=== PATIENT | male | born 1945 | race Caucasian/White ===

== ENCOUNTER → 2017-03-27 | Outpatient (CLI) | payer OTHER ==
[2017-03-27 11:36] LABS: BASO % 0.5 %; BASO ABS # 0.03 K/uL (0-0.2); COMPLETE YES; EOS % 2.1 %; HEMATOCRIT 49.3 % (42-52); IG% 0.2 %; LYMPH % 45.6 %; LYMPH ABS # 2.55 K/uL (1.2-3.4); MEAN CELL VOLUME 93.9 fL (80-100); MEAN CORPUSCULAR HEMOGLOBIN 29.7 pg (25-34); MEAN CORPUSCULAR HGB CONC 31.6 g/dl (32-36); MEAN PLATELET VOLUME 10.3 fL (7.4-10.4); MONO % 8.2 %; NEUT % 43.4 %; PLATELET COUNT 174 K/uL (130-400); RED BLOOD COUNT 5.25 M/uL (4.7-6.1); WHITE BLOOD COUNT 5.59 K/uL (4.8-10.8)
[2017-03-27 11:45] LABS: ALT/SGPT 30 U/L (12-78); BLOOD UREA NITROGEN 14 mg/dl (7-18); BUN/CREATININE RATIO 7.2 (10-20); CARBON DIOXIDE 25 mmol/L (21-32); CHLORIDE 110 mmol/L (98-107); GLUCOSE 86 mg/dl (70-99); POTASSIUM 4.1 mmol/L (3.5-5.1); SODIUM 143 mmol/L (136-145)
[2017-03-27 11:48] LABS: ALB/GLOB RATIO 0.9 (0.9-2); ALKALINE PHOSPHATASE 126 U/L (45-117); AST/SGOT 26 U/L (15-37)
[2017-03-30 18:33] LABS: LSP % CELLS ANALYZED CD4 26 % (30-61); LSP ABSOLUTE CT CD4 637 cells/uL (490-1740); LSP LYMPHOCYTES ABSOLUTE 2481 cells/uL (850-3900)
== END | disposition home or self-care (01) ==
LOC: C.LAB1850 10:11
PROVIDERS: ATTEND Internal Medicine Infectious Disease
DX: B20 Human immunodeficiency virus [HIV] disease (principal)

== ENCOUNTER → 2017-06-18 | Outpatient (CLI) | payer OTHER | END | disposition home or self-care (01) | LOC: C.LAB1850 09:55 | PROVIDERS: ATTEND Urology | DX: Z12.5 Encounter for screening for malignant neoplasm of prostate (principal) ==

== ENCOUNTER → 2017-10-02 | Outpatient (CLI) | payer OTHER ==
[2017-10-02 10:40] LABS: HEMATOCRIT 46.8 % (42-52); MEAN CELL VOLUME 96.1 fL (80-100); MEAN CORPUSCULAR HGB CONC 33.3 g/dl (32-36); MEAN PLATELET VOLUME 10.4 fL (7.4-10.4); PLATELET COUNT 202 K/uL (130-400); RED BLOOD COUNT 4.87 M/uL (4.7-6.1); WHITE BLOOD COUNT 4.84 K/uL (4.8-10.8)
[2017-10-02 11:14] LABS: ALT/SGPT 34 U/L (12-78); AST/SGOT 30 U/L (15-37); BLOOD UREA NITROGEN 21 mg/dl (7-18); BUN/CREATININE RATIO 11.1 (10-20); CALCIUM 9.1 mg/dl (8.5-10.1); CARBON DIOXIDE 25 mmol/L (21-32); CHLORIDE 110 mmol/L (98-107); CREATININE 1.88 mg/dl (0.60-1.40); GLUCOSE 84 mg/dl (70-99); POTASSIUM 4.3 mmol/L (3.5-5.1); SODIUM 139 mmol/L (136-145)
[2017-10-02 11:17] LABS: ALB/GLOB RATIO 0.8 (0.9-2); ALKALINE PHOSPHATASE 124 U/L (45-117)
[2017-10-02 11:58] LABS: BASO ABS # 0.04 K/uL (0-0.2); BASOPHIL % 0.9 % (0-2); COMPLETE YES; EOSINOPHIL % 2.7 %; LYMPH ABS # 1.19 K/uL (1.2-3.4); LYMPHOCYTE % 24.5 %; VARIANT LYM ABS # 1.23 K/uL; VARIANT LYMPHOCYTE % 25.5 %
== END | disposition home or self-care (01) ==
LOC: C.LAB1850 09:59
PROVIDERS: ATTEND Internal Medicine Infectious Disease
DX: B20 Human immunodeficiency virus [HIV] disease (principal)

== ENCOUNTER 2022-10-14 16:41 | Observation (INO) ==
[2022-10-15] MEDS ORDERED: ACETAMINOPHEN 1,000 MG/100 ML VIAL IV STA (00:08)
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
[2022-10-15 01:01] LABS: Basophils # (auto) 0.04 K/uL (0-0.2); Basophils % (auto) 0.7 %; Eosinophils # (auto) 0.48 K/uL (0-0.50); Eosinophils % (auto) 7.9 %; Hematocrit (blood only) 39.4 % (40.1-51.0); Hemoglobin 12.4 g/dl (14.0-18.0); Immature Granulocytes # (auto) 0.04 K/uL (0.00-0.02); Immature Granulocytes % (auto) 0.7 %; Lymphocytes # (auto) 2.42 K/uL (1.2-3.4); Lymphocytes % (auto) 39.7 %; Mean Corpuscular Hemoglobin 30.5 pg (25.0-34.0); Mean Corpuscular Hgb Conc 31.5 g/dL (32.0-36.0); Mean Platelet Volume 9.6 fL (9.4-12.4); Monocytes # (auto) 0.45 K/uL (0.24-0.82); Monocytes % (auto) 7.4 %; Neutrophils # (auto) 2.67 K/uL (1.4-6.5); Neutrophils % (auto) 43.6 %; Platelet Count 285 K/uL (130-400); RDW Coefficient of Variation 13.8 % (11.5-14.5); Red Blood Count 4.06 M/uL (4.63-6.08)
[2022-10-15 01:23] LABS: Partial Thromboplastin Time 26.3 Seconds (21.0-31.0); Prothrombin Time 10.5 Seconds (9.0-12.0)
[2022-10-15 01:25] LABS: Albumin Globulin Ratio 0.9 (0.9-2); Albumin Level 3.6 gm/dl (3.4-5.0); Bilirubin,Total 0.3 mg/dl (0.2-1.0); Calcium 8.3 mg/dl (8.5-10.1); Creatinine Clr Calc Pharmacy 43.2 ml/min; Est GFR (African American) 49.7 ml/min; Est GFR (Non-African American) 42.8 ml/min; Globulin 3.8 gm/dl (2.5-4.0); Potassium 4.1 mmol/L (3.5-5.1); Total Protein 7.4 gm/dl (6.0-8.3)
[2022-10-15] MEDS ORDERED: Heparin IV Adult Wt-Based Standard WITH Bolus Protocol IV STA (02:58)
[2022-10-15] MEDS ORDERED: HEPARIN SOD (PORCINE) 1000 UNIT/ML IV ONE (03:14)
[2022-10-15] MEDS: HEPARIN SODIUM/DEXTROSE 25,000 UNITS/500 ML BAG IV SCH ×2 (03:16→23:02)
[2022-10-15 03:28] LABS: Influenza A virus by PCR Negative (Neg); Influenza B virus by PCR Negative (Neg); RSV by PCR Negative (Neg)
[2022-10-15 03:53] LABS: SARS CoV2 RNA(COVID-19) Ceph POSITIVE (Negative)
[2022-10-15] MEDS ORDERED: PANTOprazole 40 MG TAB PO PRN (05:13)
[2022-10-15] MEDS ORDERED: POLYETHYLENE (MIRALAX) 17 GM PACK PO PRN (05:13)
[2022-10-15] MEDS: LEVOTHYROXINE SODIUM 100 MCG TABLET PO SCH (06:31)
--- NOTE | 2022-10-15 06:59 | Ultrasound Report ---
ULTRASOUND LEFT LOWER EXTREMITY VENOUS CLINICAL HISTORY: Left leg pain and swelling. COMPARISON STUDY: No priors TECHNIQUE: Real-time, grayscale, and color Doppler sonography of the deep veins of the left lower ext remity was performed from the inguinal crease to the calf. Compression and augmentation were utilized . FINDINGS: There is extensive age indeterminant and nonocclusive deep venous thrombus seen throughout the left lower extremity. This is seen within the common femoral vein, within 1 of 2 paired superfici al femoral veins, within both paired popliteal veins, and within the calf in the posterior tibial, pe roneal, and anterior tibial veins. The greater saphenous vein and the profunda femoris vein at the ju nction with the common femoral vein are clear. Soft tissue edema seen within the calf. IMPRESSION: Extensive age-indeterminate nonocclusive deep venous thrombosis from the level extremity as above. ACT 112: Negative or not required by law. Electronically signed by: Bryce Blake M.D. 10/15/2022 6:57 AM
[2022-10-15 07:13] LABS: Hematocrit (blood only) 39.8 % (40.1-51.0); Hemoglobin 12.3 g/dl (14.0-18.0); Mean Corpuscular Hemoglobin 29.9 pg (25.0-34.0); Mean Corpuscular Hgb Conc 30.9 g/dL (32.0-36.0); Mean Corpuscular Volume 96.8 fL (80.0-100.0); Mean Platelet Volume 9.6 fL (9.4-12.4); Platelet Count 286 K/uL (130-400); RDW Coefficient of Variation 13.7 % (11.5-14.5); RDW Standard Deviation 48.6 fL (36.4-46.3); Red Blood Count 4.11 M/uL (4.63-6.08); White Blood Count 6.33 K/ul (4.8-10.8)
--- NOTE | 2022-10-15 07:31 | History and Physical Report ---
DATE OF ADMISSION: 10/15/2022 CHIEF COMPLAINT: Left lower extremity edema and pain. HISTORY OF PRESENT ILLNESS: This is a 77-year-old male with past medical history significant for hypothyroidism, hyperlipidemia, COPD, and history of blood clots, he says his first blood clot was in 2002 and last blood clot was about 1 year ago, and on his last blood clot, he was on Xarelto for 6 months. As per EPIC, he also has history of left lower extremity DVT( seems in 2019), status post IVC filter; bilateral carotid artery stenosis, hypertension, history of CVA, history of PVCs, reflux esophagitis, chronic kidney disease, stage III; HIV positive, history of right common carotid artery stent placement, and chronic hepatitis C with cirrhosis, treated in 2019 as per ID notes, diagnosed with HIV in 1989, follows with ID, presents with left lower extremity swelling. The patient says the swelling started about 5 days ago and has pain. He went to [facility] and he says he was having DVT, but he was not treated, so came here. Resting comfortably and hemodynamically stable. Except for pain in the leg and swelling, he has no other complaints. Denies any chest pain. No shortness of breath. No cough. No fevers. He said he had flu-like symptoms since last 2 weeks ago and that is getting better. Except for lingering cough, he says the symptoms resolved. Denies any headache. No blurred visions. No earache. No runny nose. No sore throat. Appetite is okay. No nausea. No abdominal pain. Normal bowel and bladder movements. Denies any blood in stools or black stools. Denies any hematuria. ALLERGIES: AMOXICILLIN AND PENICILLIN. PAST MEDICAL HISTORY: As mentioned above. PAST SURGICAL HISTORY: Colonoscopies, EGDs, IVC filter placement, abdominal hernia repair, and inguinal hernia repair. MEDICATIONS: The patient is on aspirin 81 mg p.o. at bedtime, Biktarvy 1 tablet daily, doxepin 100 mg p.o. at bedtime, Repatha 140 mg subcutaneous 2 times a week, levothyroxine 100 mcg p.o. a.m., and omeprazole 20 mg p.o. daily p.r.n. FAMILY HISTORY: Significant for brother had pancreatic cancer, mother had cervical cancer, sister has lung cancer, and father has hypertension and stroke. SOCIAL HISTORY: Single. Quit smoking in 2008, smoked 1 pack a day for 20 years. Alcohol, quit 5 years ago. History of IV drug use, stopped and currently not doing. REVIEW OF SYSTEMS: As per HPI. Rest of review of systems is negative. PHYSICAL EXAMINATION: GENERAL: The patient is moderately built, not in acute distress. VITAL SIGNS: Temperature 36.7, pulse 66, respiratory rate 18, blood pressure 158/109, and oxygen saturation 97% on room air. HEENT: Pupils equal, round, and reactive to light. Oral mucosa moist. NECK: No JVD. No neck masses. CARDIOVASCULAR: S1 and S2 heard. Regular rate and rhythm. No murmur. No gallop. RESPIRATORY SYSTEM: Normal AP diameter. No accessory muscle use. No wheezing. No crackles. ABDOMEN: Soft. Bowel sounds present. Nontender. No distention. CENTRAL NERVOUS SYSTEM: Cranial nerves II-XII grossly intact, nonfocal. EXTREMITIES: Left lower extremity is swollen and somewhat warm and tender to palpation. LABORATORY DATA: WBC 6.1, hemoglobin 12.4, hematocrit 39.4, and platelets 285. PT 10.5, INR 1, and APTT 26.3. Sodium 138, potassium 4.1, chloride 106, bicarbonate 25, BUN 14, creatinine 1.5, serum glucose 107, calcium 8.3, and magnesium 2. Total bilirubin 0.3, AST 21, ALT 20, and alkaline phosphatase 103. Troponin I high sensitivity 7.9. SARS-CoV-2 PCR positive. Influenza A and B PCR negative. RSV PCR negative. IMAGING DATA: Venous Doppler preliminary report shows chronic deep vein thrombosis throughout the left lower extremity including left common femoral, distal femoral, and proximal popliteal veins. There is edema noted in the left calf. Chest x-ray: No acute findings. EKG: Sinus rhythm with frequent PVCs at rate of 89. SARS-CoV-2 PCR came back positive. Influenza A and B PCR negative. RSV PCR negative. ASSESSMENT AND PLAN: This is a 77-year-old male, who presents with left lower extremity swelling and was found to have deep vein thrombosis. 1. Left lower extremity deep venous thrombosis, which is chronic appearing on the preliminary report will follow final report. The patient has a history of blood clots and the patient is status post IVC filter. His last blood clot was about 1 year ago as per the patient and was treated with Xarelto for 6 months. In the EPIC, it looks like his left lower extremity deep vein thrombosis was diagnosed in 2020. We will continue with IV heparin. Will discuss with housing case manager for further anticoagulation and duration anticoagulation. He may need long-term anticoagulation because of history of recurrent clots .Pain control. 2. COVID positive. The patient has flu-like symptoms for the last 2 weeks. Except for lingering cough, he is getting better and is saturating fine on room air. Chest x-ray looks okay. We will do COVID precautions. 3. Chronic kidney disease, stage III with creatinine of 1.5, seems to be stable. 4. History of hypothyroidism, on Synthroid. 5. History of human immunodeficiency virus, follows with ID, on Biktarvy. 6. Hyperlipidemia, on Repatha. 7. History of cerebrovascular accident, on Repatha and aspirin. 8. History of hepatitis C and liver cirrhosis, status post treatment in 2020 as per ID notes. 9. Deep venous thrombosis prophylaxis, on IV heparin. DISPOSITION: Closely observe in medical floor. PT and OT prior to discharge. Social service to help with discharge planning. Level 1 full code. Job ID: [id number] MTDD
--- NOTE | 2022-10-15 07:44 | XRay Report ---
XR chest 1V portable CLINICAL HISTORY: cough, HIV TECHNIQUE: Single frontal radiograph of the chest was obtained. Comparison: Comparison is made to chest radiograph 10/31/2019 FINDINGS: Exam is limited by underpenetration. The cardiomediastinal silhouette is normal. Reticular interstiti al opacities are seen. Apparent airspace opacity in the left lower lung likely reflects overlying sof t tissue. No evidence of pleural effusion or pneumothorax. IMPRESSION: No acute abnormalities and in particular no evidence of pneumonia. ACT 112: Negative or not required by law. Electronically signed by: Heber Galvan M.D. 10/15/2022 7:43 AM
[2022-10-15 07:45] LABS: BUN Creatinine Ratio 9.3 (10-20); Calcium 8.5 mg/dl (8.5-10.1); Creatinine Clr Calc Pharmacy 44.6 ml/min; Est GFR (African American) 51.7 ml/min; Est GFR (Non-African American) 44.6 ml/min; Potassium 4.2 mmol/L (3.5-5.1)
[2022-10-15 08:22] LABS: Basophils # (auto) 0.05 K/uL (0-0.2); Basophils % (auto) 0.8 %; Eosinophils # (auto) 0.46 K/uL (0-0.50); Eosinophils % (auto) 7.3 %; Immature Granulocytes # (auto) 0.03 K/uL (0.00-0.02); Immature Granulocytes % (auto) 0.5 %; Lymphocytes # (auto) 3.18 K/uL (1.2-3.4); Lymphocytes % (auto) 50.2 %; Monocytes # (auto) 0.46 K/uL (0.24-0.82); Monocytes % (auto) 7.3 %; Neutrophils # (auto) 2.15 K/uL (1.4-6.5); Neutrophils % (auto) 33.9 %
--- NOTE | 2022-10-15 09:42 | Electrocardiogram Report ---
Test Reason : Blood Pressure : / mmHG Vent. Rate : 089 BPM Atrial Rate : 089 BPM P-R Int : 122 ms QRS Dur : 082 ms QT Int : 358 ms P-R-T Axes : 050 052 038 degrees QTc Int : 435 ms Poor data quality, interpretation may be adversely affected Sinus rhythm with frequent Premature ventricular complexes Otherwise normal ECG When compared with ECG of 24-DEC-2020 12:12, Premature ventricular complexes are now Present Right bundle branch block is no longer Present Confirmed by Maximo Crisostomo ([id number]) on 10/15/2022 9:41:40 AM Referred By: REFERRED SELF Confirmed By:Librado Crisostomo
[2022-10-15 10:12] LABS: Partial Thromboplastin Ratio 2.2
[2022-10-15 10:18] LABS: Partial Thromboplastin Time 59.2 Seconds (21.0-31.0)
[2022-10-15] MEDS ORDERED: SODIUM CHLORIDE 0.9% 500 ML IV ONE (15:57)
--- NOTE | 2022-10-15 18:10 | Hospitalist Progress Note ---
Date of Service October 15, 2022 Assessment & Plan (1) Left leg DVT: Plan: Patient is a 77 yr male who presents with left lower extremity swelling and was found to have deep vein thrombosis. 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 Previously on Xarelto Continue IV heparin for now Discussed with oncology Dr. Nicola Thomas: Recommends to continue anticoagulation Plan to transition to Xarelto as able as per patient's preference COVID 19 Infection Has flulike symptoms for 2 weeks CXR:No acute abnormalities and in particular no evidence of pneumonia. Saturating well on room air Continue supportive care CKD III Baseline creatinine Monitor renal function Avoid nephrotoxic agents as able Hypothyroidism Continue levothyroxine H/O HIV Follows with ID on Biktarvy. Hyperlipidemia on Repatha H/O CVA Continue Repatha and aspirin. H/O Hepatitis C and liver cirrhosis S/P treatment in 2019 DVT Px: IV Heparin Code Status Full Code Admission and Anticipated Discharge Date Admission Date: October 15, 2022 Subjective Patient is seen and examined at bedside States having left leg edema Cough improving Denies any shortness of breath, dizziness, nausea, abdominal pain On IV heparin No bleeding issues Review of Systems Review of Systems: All systems reviewed & are unremarkable except as noted in Subjective Physical Exam Physical Exam: Physical Exam: Vitals signs as noted above General Appearance:Moderately built and nourished, no apparent distress Head: normocephalic, Atraumatic Eyes: normal inspection, EOMI Neck: supple, Trachea midline Respiratory/Chest: Decreased breath sounds, CTA, No accessory muscle use Cardiovascular: S1, S2, No murmur Abdomen/GI:Soft, Non tender, Bowel sounds present Extremities/Musculoskeletal:normal inspection, Left LE edema Neurologic/Psych:AAOX3, grossly no focal neurological deficits Skin: normal color, warm Results & Data Results & Data ([facility]) Vital Signs (Past 12 Hours) Vital Signs Temp Pulse Resp BP Pulse Ox O2 Del Method 10/15/22 15:20 36.6 C 75 18 178/82 H 95 Room Air 10/15/22 14:52 Room Air Laboratory Results Short CBC 10/15/22 10/15/22 Range/Units 00:51 06:45 WBC 6.10 6.33 (4.8-10.8) K/ul Hgb 12.4 L 12.3 L (14.0-18.0) g/dl Hct 39.4 L 39.8 L (40.1-51.0) % Plt Count 285 286 (130-400) K/uL BMP 10/15/22 10/15/22 00:51 06:45 Sodium 138 139 Potassium 4.1 4.2 Chloride 106 108 H Carbon Dioxide 25 26 BUN 14 14 Creatinine 1.55 H 1.50 H Glucose 107 H 138 H Calcium 8.3 L 8.5 Liver Function 10/15/22 Range/Units 00:51 Total Bilirubin 0.3 (0.2-1.0) mg/dl AST 21 (13-39) U/L ALT 20 (7-52) U/L Alkaline Phosphatase 103 (34-104) U/L Albumin 3.6 (3.4-5.0) gm/dl (1) Left leg DVT Affected thrombotic vein of extremity: femoral Chronicity: unspecified Qualified Code(s): I82.412 - Acute embolism and thrombosis of left femoral vein
[2022-10-15] MEDS: oxyCODONE HCL IR 5 MG TAB (IMMEDIATE RELEASE) PO PRN (20:08)
[2022-10-15] MEDS: ACETAMINOPHEN 325 MG TAB PO PRN (20:09)
[2022-10-15] MEDS ORDERED: DOXEPIN HCL 50 MG CAPSULE PO SCH (21:00)
[2022-10-15] MEDS ORDERED: ASPIRIN 81 MG ECTAB PO SCH (21:00)
[2022-10-15 21:46] LABS: Partial Thromboplastin Ratio > 5.1
[2022-10-15 22:39] LABS: Partial Thromboplastin Time > 139.0 Seconds (21.0-31.0)
[2022-10-16 02:04] LABS: Hematocrit (blood only) 35.8 % (40.1-51.0); Hemoglobin 11.4 g/dl (14.0-18.0); Mean Corpuscular Hemoglobin 30.2 pg (25.0-34.0); Mean Corpuscular Hgb Conc 31.8 g/dL (32.0-36.0); Mean Platelet Volume 9.7 fL (9.4-12.4); Platelet Count 283 K/uL (130-400); RDW Coefficient of Variation 13.8 % (11.5-14.5); RDW Standard Deviation 47.4 fL (36.4-46.3); Red Blood Count 3.77 M/uL (4.63-6.08); White Blood Count 6.39 K/ul (4.8-10.8)
[2022-10-16 02:28] LABS: Partial Thromboplastin Time 28.1 Seconds (21.0-31.0)
[2022-10-16 02:52] LABS: BUN Creatinine Ratio 10.3 (10-20); Calcium 8.1 mg/dl (8.5-10.1); Creatinine Clr Calc Pharmacy 43.2 ml/min; Est GFR (African American) 49.7 ml/min; Est GFR (Non-African American) 42.8 ml/min; Potassium 4.3 mmol/L (3.5-5.1)
[2022-10-16] MEDS: LEVOTHYROXINE SODIUM 100 MCG TABLET PO SCH (06:00)
[2022-10-16] MEDS ORDERED: RIVAROXABAN 15 MG TAB PO SCH (09:00)
[2022-10-16] MEDS: oxyCODONE HCL IR 5 MG TAB (IMMEDIATE RELEASE) PO PRN (09:00)
[2022-10-16] MEDS: ACETAMINOPHEN 325 MG TAB PO PRN (09:00)
--- NOTE | 2022-10-16 12:33 | Hospitalist Progress Note ---
Date of Service October 16, 2022 Assessment & Plan (1) Left leg DVT: Plan: Patient is a 77 yr male who presents with left lower extremity swelling and was found to have deep vein thrombosis. 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 Previously on Xarelto Discussed with oncology Dr. Nicola Thomas: Recommends to continue anticoagulation IV Heparin transitioned to Xarelto COVID 19 Infection Has flulike symptoms for 2 weeks CXR:No acute abnormalities and in particular no evidence of pneumonia. Saturating well on room air Continue supportive care CKD III Baseline creatinine Monitor renal function Avoid nephrotoxic agents as able Hypothyroidism Continue levothyroxine H/O HIV Follows with ID on Biktarvy. Hyperlipidemia on Repatha H/O CVA Continue Repatha and aspirin. H/O Hepatitis C and liver cirrhosis S/P treatment in 2019 DVT Px: Xarelto Code Status Full Code Disposition Home Admission and Anticipated Discharge Date Admission Date: October 15, 2022 Subjective Patient is seen and examined at bedside States having leg discomfort and swelling Has dry cough No other complaints Denies any shortness of breath, dizziness, nausea, abdominal pain Denies any bleeding issues Review of Systems Review of Systems: All systems reviewed & are unremarkable except as noted in Subjective Physical Exam Physical Exam: Physical Exam: Vitals signs as noted above General Appearance:Moderately built and nourished, no apparent distress Head: normocephalic, Atraumatic Eyes: normal inspection, EOMI Neck: supple, Trachea midline Respiratory/Chest: Decreased breath sounds, CTA, No accessory muscle use Cardiovascular: S1, S2, No murmur Abdomen/GI:Soft, Non tender, Bowel sounds present Extremities/Musculoskeletal:normal inspection, Left LE edema Neurologic/Psych:AAOX3, grossly no focal neurological deficits Skin: normal color, warm Results & Data Results & Data ([facility]) Vital Signs (Past 12 Hours) Vital Signs Temp Pulse Resp BP Pulse Ox O2 Del Method 10/16/22 09:00 Room Air 10/16/22 05:56 36.5 C 71 16 162/68 H 93 Room Air Laboratory Results Short CBC 10/16/22 Range/Units 01:41 WBC 6.39 (4.8-10.8) K/ul Hgb 11.4 L (14.0-18.0) g/dl Hct 35.8 L (40.1-51.0) % Plt Count 283 (130-400) K/uL [facility] 10/16/22 01:41 Sodium 137 Potassium 4.3 Chloride 109 H Carbon Dioxide 23 BUN 16 Creatinine 1.55 H Glucose 104 H Calcium 8.1 L (1) Left leg DVT Affected thrombotic vein of extremity: femoral Chronicity: unspecified Qualified Code(s): I82.412 - Acute embolism and thrombosis of left femoral vein
--- NOTE | 2022-10-16 12:50 | Discharge Summary ---
Date of Service October 16, 2022 Admission HPI Per Admitting Provider CHIEF COMPLAINT: Left lower extremity edema and pain. HISTORY OF PRESENT ILLNESS: This is a 77-year-old male with past medical history significant for hypothyroidism, hyperlipidemia, COPD, and history of blood clots, he says his first blood clot was in 2002 and last blood clot was about 1 year ago, and on his last blood clot, he was on Xarelto for 6 months. As per EPIC, he also has history of left lower extremity DVT( seems in 2019), status post IVC filter; bilateral carotid artery stenosis, hypertension, history of CVA, history of PVCs, reflux esophagitis, chronic kidney disease, stage III; HIV positive, history of right common carotid artery stent placement, and chronic hepatitis C with cirrhosis, treated in 2019 as per ID notes, diagnosed with HIV in 1989, follows with ID, presents with left lower extremity swelling. The patient says the swelling started about 5 days ago and has pain. He went to [facility] and he says he was having DVT, but he was not treated, so came here. Resting comfortably and hemodynamically stable. Except for pain in the leg and swelling, he has no other complaints. Denies any chest pain. No shortness of breath. No cough. No fevers. He said he had flu-like symptoms since last 2 weeks ago and that is getting better. Except for lingering cough, he says the symptoms resolved. Denies any headache. No blurred visions. No earache. No runny nose. No sore throat. Appetite is okay. No nausea. No abdominal pain. Normal bowel and bladder movements. Denies any blood in stools or black stools. Denies any hematuria. Admission Exam Per Admitting Provider PHYSICAL EXAMINATION: GENERAL: The patient is moderately built, not in acute distress. VITAL SIGNS: Temperature 36.7, pulse 66, respiratory rate 18, blood pressure 158/109, and oxygen saturation 97% on room air. HEENT: Pupils equal, round, and reactive to light. Oral mucosa moist. NECK: No JVD. No neck masses. CARDIOVASCULAR: S1 and S2 heard. Regular rate and rhythm. No murmur. No gallop. RESPIRATORY SYSTEM: Normal AP diameter. No accessory muscle use. No wheezing. No crackles. ABDOMEN: Soft. Bowel sounds present. Nontender. No distention. CENTRAL NERVOUS SYSTEM: Cranial nerves II-XII grossly intact, nonfocal. EXTREMITIES: Left lower extremity is swollen and somewhat warm and tender to palpation. Principal Diagnosis Left lower extremity deep vein thrombosis COVID-19 infection Discharge Data Allergies Allergy/AdvReac Type Severity Reaction Status Date / Time amoxicillin AdvReac Severe severe Verified 10/15/22 00:14 diarrhea penicillin G AdvReac Severe severe Verified 10/15/22 00:14 diarrhea Consultations 10/15/22 02:58 ED Decision to Admit Stat Procedures Performed Laboratory Results WBC 6.39 K/ul (4.8-10.8) 10/16/22 01:41 RBC 3.77 M/uL (4.63-6.08) L 10/16/22 01:41 Hgb 11.4 g/dl (14.0-18.0) L 10/16/22 01:41 Hct 35.8 % (40.1-51.0) L 10/16/22 01:41 MCV 95.0 fL (80.0-100.0) 10/16/22 01:41 MCH 30.2 pg (25.0-34.0) 10/16/22 01:41 MCHC 31.8 g/dL (32.0-36.0) L 10/16/22 01:41 RDW Std Deviation 47.4 fL (36.4-46.3) H 10/16/22 01:41 RDW Coeff of Ghazala 13.8 % (11.5-14.5) 10/16/22 01:41 Plt Count 283 K/uL (130-400) 10/16/22 01:41 MPV 9.7 fL (9.4-12.4) 10/16/22 01:41 Immature Gran % (Auto) 0.5 % 10/15/22 06:45 Neut % (Auto) 33.9 % 10/15/22 06:45 Lymph % (Auto) 50.2 % 10/15/22 06:45 [place] % (Auto) 7.3 % 10/15/22 06:45 Eos % (Auto) 7.3 % 10/15/22 06:45 Baso % (Auto) 0.8 % 10/15/22 06:45 Neut # (Auto) 2.15 K/uL (1.4-6.5) 10/15/22 06:45 Lymph # (Auto) 3.18 K/uL (1.2-3.4) 10/15/22 06:45 [place] # (Auto) 0.46 K/uL (0.24-0.82) 10/15/22 06:45 Eos # (Auto) 0.46 K/uL (0-0.50) 10/15/22 06:45 Baso # (Auto) 0.05 K/uL (0-0.2) 10/15/22 06:45 Immature Gran # (Auto) 0.03 K/uL (0.00-0.02) H 10/15/22 06:45 PT 10.5 Seconds (9.0-12.0) 10/15/22 00:51 INR 1.0 (0.9-1.1) 10/15/22 00:51 APTT 28.1 Seconds (21.0-31.0) 10/16/22 01:41 PTT Ratio 1.0 10/16/22 01:41 Sodium 137 mmol/L (136-145) 10/16/22 01:41 Potassium 4.3 mmol/L (3.5-5.1) 10/16/22 01:41 Chloride 109 mmol/L (98-107) H 10/16/22 01:41 Carbon Dioxide 23 mmol/L (21-32) 10/16/22 01:41 Anion Gap 5 (3-11) 10/16/22 01:41 BUN 16 mg/dl (6-23) 10/16/22 01:41 Creatinine 1.55 mg/dl (0.6-1.4) H 10/16/22 01:41 Est Cr Clr Drug Dosing 43.2 ml/min 10/16/22 01:41 Est GFR ( Amer) 49.7 ml/min 10/16/22 01:41 Est GFR (Non-Af Amer) 42.8 ml/min 10/16/22 01:41 BUN/Creatinine Ratio 10.3 (10-20) 10/16/22 01:41 Glucose 104 mg/dl (70-99(Fasting)) H 10/16/22 01:41 Calcium 8.1 mg/dl (8.5-10.1) L 10/16/22 01:41 Magnesium 2.0 mg/dl (1.7-2.4) 10/15/22 06:45 Total Bilirubin 0.3 mg/dl (0.2-1.0) 10/15/22 00:51 AST 21 U/L (13-39) 10/15/22 00:51 ALT 20 U/L (7-52) 10/15/22 00:51 Alkaline Phosphatase 103 U/L (34-104) 10/15/22 00:51 Troponin I High Sens 7.9 pg/ml (0-20) 10/15/22 00:51 Total Protein 7.4 gm/dl (6.0-8.3) 10/15/22 00:51 Albumin 3.6 gm/dl (3.4-5.0) 10/15/22 00:51 Globulin 3.8 gm/dl (2.5-4.0) 10/15/22 00:51 Albumin/Globulin Ratio 0.9 (0.9-2) 10/15/22 00:51 SARS-CoV-2 (PCR) POSITIVE (Negative) A* 10/15/22 02:41 Influenza Type A (PCR) Negative (Neg) 10/15/22 02:41 Influenza Type B (PCR) Negative (Neg) 10/15/22 02:41 RSV (RT-PCR) Negative (Neg) 10/15/22 02:41 Impressions Chest X-Ray 10/15/22 00:08 XR chest 1V portable CLINICAL HISTORY: cough, HIV TECHNIQUE: Single frontal radiograph of the chest was obtained. Comparison: Comparison is made to chest radiograph 10/31/2019 FINDINGS: Exam is limited by underpenetration. The cardiomediastinal silhouette is normal. Reticular interstitial opacities are seen. Apparent airspace opacity in the left lower lung likely reflects overlying soft tissue. No evidence of pleural effusion or pneumothorax. IMPRESSION: No acute abnormalities and in particular no evidence of pneumonia. ACT 112: Negative or not required by law. Electronically signed by: Heber Galvan M.D. 10/15/2022 7:43 AM Venous Doppler Study 10/15/22 00:08 ULTRASOUND LEFT LOWER EXTREMITY VENOUS CLINICAL HISTORY: Left leg pain and swelling. COMPARISON STUDY: No priors TECHNIQUE: Real-time, grayscale, and color Doppler sonography of the deep veins of the left lower extremity was performed from the inguinal crease to the calf. Compression and augmentation were utilized. FINDINGS: There is extensive age indeterminant and nonocclusive deep venous thrombus seen throughout the left lower extremity. This is seen within the common femoral vein, within 1 of 2 paired superficial femoral veins, within both paired popliteal veins, and within the calf in the posterior tibial, peroneal, and anterior tibial veins. The greater saphenous vein and the profunda femoris vein at the junction with the common femoral vein are clear. Soft tissue edema seen within the calf. IMPRESSION: Extensive age-indeterminate nonocclusive deep venous thrombosis from the level extremity as above. ACT 112: Negative or not required by law. Electronically signed by: Bryce Blake M.D. 10/15/2022 6:57 AM Ordered Studies 10/15/22 00:08 US venous doppler LE Urgent Hospital Course (1) Left leg DVT: Patient is a 77 yr male who presents with left lower extremity swelling and was found to have deep vein thrombosis. 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 Previously on Xarelto Discussed with oncology Dr. Nicola Thomas: Recommends to continue anticoagulation IV Heparin transitioned to Xarelto COVID 19 Infection Has flulike symptoms for 2 weeks CXR:No acute abnormalities and in particular no evidence of pneumonia. Saturating well on room air Continue supportive care CKD III Baseline creatinine Monitor renal function Avoid nephrotoxic agents as able Hypothyroidism Continue levothyroxine H/O HIV Follows with ID on Biktarvy. Hyperlipidemia on Repatha H/O CVA Continue Repatha and aspirin. H/O Hepatitis C and liver cirrhosis S/P treatment in 2019 DVT Px: Xarelto Code Status Full Code Disposition Home Total Time Total Time Spent Total Time Spent (In Minutes): 45 minutes Discharge Plan Discharge Items Patient Disposition: Home - Self-Care Reason For Visit: EDEMA OF LEFT LOWER EXTREMITY Discharge Diagnosis: Left lower extremity deep vein thrombosis COVID-19 infection Condition on Discharge: Good Activity: Per Instructions section Exercise/Sports: Wait until after follow-up appointment Non-emergency contact: Primary Care Provider Call non-emergency contact if: you have any medication questions, your symptoms worsen, your pain is concerning for you and you have a fever Follow-up/Referrals: Cory Candelaria DO [Primary Care Provider] - Diet: Heart Healthy Addtl Attending Provider Instructions: Follow-up with your primary care physician Dr. Candelaria in 1 week as advised. --- Take Xarelto 15 mg twice daily with food for 21 days followed by 20 mg once daily with food. -- Discuss with your/ primary care physician/log brander for further recom mendations on duration of anticoagulation with Xarelto. Seek immediate medical attention if your symptoms reoccur or worsen Please take all medications as instructed on discharge list below. Please call if you have any questions or problems. You can reach a [facility] hospitalist on duty at [facility] 24 hours a day by calling [phone] Home Isolation COVID-19 Instructions The following information about Home Isolation is from the CDC Website: https://www.cdc.gov/coronavirus/2019-ncov/hcp/lxwkzcah-ywfceor-manchz.html Stay home except to get medical care People who are mildly ill with COVID-19 are able to isolate at home during their illness. You should restrict activities outside your home, except for getting medical care. Do not go to work, school, or public areas. Avoid using public transportation, ride-sharing, or taxis. Separate yourself from other people and animals in your home People: As much as possible, you should stay in a specific room and away from other people in your home. Also, you should use a separate bathroom, if available. Animals: You should restrict contact with pets and other animals while you are sick with COVID-19, just like you would around other people. Although there have not been reports of pets or other animals becoming sick with COVID-19, it is still recommended that people sick with COVID-19 limit contact with animals until more information is known about the virus. When possible, have another member of your household care for your animals while you are sick. If you are sick with COVID-19, avoid contact with your pet, including petting, snuggling, being kissed or licked, and sharing food. If you must care for your pet or be around animals while you are sick, wash your hands before and after you interact with pets and wear a face mask. Call ahead before visiting your doctor If you have a medical appointment, call the healthcare provider and tell them that you have or may have COVID-19. This will help the healthcare providers office take steps to keep other people from getting infected or exposed. Wear a face mask You should wear a face mask when you are around other people (e.g., sharing a room or vehicle) or pets and before you enter a healthcare providers office. If you are not able to wear a face mask (for example, because it causes trouble breathing), then people who live with you should not stay in the same room with you, or they should wear a face mask if they enter your room. Cover your coughs and sneezes Cover your mouth and nose with a tissue when you cough or sneeze. Throw used tissues in a lined trash can. Immediately wash your hands with soap and water for at least 20 seconds or, if soap and water are not available, clean your hands with an alcohol-based hand core measures abstractor that contains at least 60% alcohol. Clean your hands often Wash your hands often with soap and water for at least 20 seconds, especially after blowing your nose, coughing, or sneezing; going to the bathroom; and before eating or preparing food. If soap and water are not readily available, use an alcohol-based hand core measures abstractor with at least 60% alcohol, covering all surfaces of your hands and rubbing them together until they feel dry. Soap and water are the best option if hands are visibly dirty. Avoid touching your eyes, nose, and mouth with unwashed hands. Avoid sharing personal household items You should not share dishes, drinking glasses, cups, eating utensils, towels, or bedding with other people or pets in your home. After using these items, they s hould be washed thoroughly with soap and water. Clean all high-touch surfaces everyday High touch surfaces include counters, tabletops, doorknobs, bathroom fixtures, toilets, phones, keyboards, tablets, and bedside tables. Also, clean any surfaces that may have blood, stool, or body fluids on them. Use a household cleaning spray or wipe, according to the label instructions. Labels contain instructions for safe and effective use of the cleaning product including precautions you should take when applying the product, such as wearing gloves and making sure you have good ventilation during use of the product. Monitor your symptoms Seek prompt medical attention if your illness is worsening (e.g., difficulty breathing).Beforeseeking care, call your healthcare provider and tell them that you have, or are being evaluated for, COVID-19. Put on a face mask before you enter the facility. These steps will help the healthcare providers office to keep other people in the office or waiting room from getting infected or exposed. Ask your healthcare provider to call the local or state health department. Persons who are placed under active monitoring or facilitated self- monitoring should follow instructions provided by their local health department or occupational health professionals, as appropriate. When working with your local health department check their available hours. If you have a medical emergency and need to call 911, notify the dispatch personnel that you have, or are being evaluated for COVID-19. If possible, put on a face mask before emergency medical services arrive. Discontinuing home isolation Patients with confirmed COVID-19 should remain under home isolation precautions until the risk of secondary transmission to others is thought to be low. The decision to discontinue home isolation precautions should be made on a [id number] basis, in consultation with healthcare providers and critical access hospital and [facility] health departments. Coronavirus disease 2019 (COVID-19) is a virus that causes a respiratory illness. It is caused by a coronavirus called 2019 novel coronavirus (2019- nCoV). There are many types of coronavirus. Coronaviruses are a very common cause of bronchitis. They may sometimes cause lung infection(pneumonia). Symptoms can range from mild to severe respiratory illness. These viruses are also foundin some animals. COVID-19 was first found in people in [facility], in late 2019. In 2020, several cases of COVID-19 have been confirmed in the [place] Public health officials are working to find the source. How the virus spreads is not yet fully known. It may be spread through droplets of fluid that a person coughs or sneezes into the air. It may be spread if you touch a surface with virus on it, such as a handle or object, and then touch your mouth. What are the symptoms of COVID-19? Some people have no symptoms or mild symptoms. Symptoms may appear 2 to 14 days after contact with the virus. Symptoms can include: Fever Coughing Trouble breathing What are possible complications from COVID-19? In many cases, this virus can cause infection (pneumonia) in both lungs. In some cases, this can cause . How is COVID-19 diagnosed? Your healthcare provider will ask about your symptoms. He or she will also ask about your recent travel and contact with sick people. Testing for the virus is only done through the CDC. If yourhealthcare provider thinks you may have COVID- 19, he or she will work with your local health department and the CDC on testing. Follow all instructions from your healthcare provider. COVID-19 is diagnosed by: Nasal and throat swab. A cotton-tipped swab is wiped inside your nose or throat. This is done to check for viruses in your nasal mucus. Sputum culture. A small sample of mucus coughed from your lungs (sputum) is collected if you have a cough. It is checked for the virus. How is COVID-19 treated? There is currently no medicine to treat the virus. Treatment is done to help your body while it fights the virus. This is known as supportive care. Supportive care may include: Pain medicine. These include acetaminophen and ibuprofen. They are used to he lp ease pain and reduce fever. Bed rest. This helps your body fight the illness. For severe illness, you may need to stay in the hospital. Care during severe illness may include: IV (intravenous) fluids.These are given through a vein to help keep your body hydrated. Oxygen. Supplemental oxygen or ventilation with a breathing machine (ventilator) may be given. This is done to keep enough oxygen in your body. Are you at risk for COVID-19? If youve been to a place where people have been sick with this virus, you are at risk for infection. You are at risk if you: Recently traveled to an affected area Had contact with a sick person who recently traveled to this area Had contact with a person who was diagnosed with COVID-19 How can COVID-19 be prevented? There is no vaccine yet. The best prevention is to not have contact with the virus. The CDC advises that people should not travel to areas where there are COVID-19 outbreaks right now for any reason that is not urgent. To help prevent spreading the infection, wash your hands often, or use an alcohol-basedhand core measures abstractor. If you are in an area with COVID-19: Wash your hands often. Or use an alcohol-based hand core measures abstractor often. Only touch your eyes, nose, or mouth with clean hands. Dont have contact with people who are sick. Follow local instructions about being in public. For example, you may be told to not use public transport for a period of time. Stay away from markets that have live or animals. Wash your hands after touching any animals. Don't touch animals that may be sick. Dont share eating or drinking tools with sick people. Dont kiss someone who is sick. Clean surfaces often with disinfectant. If you were in an area with COVID-19 in the last 14 days: Call your healthcare provider. He or she can talk with local health staff to see what action may be needed. Follow all instructions from your provider. Take your temperature every morning and evening for at least 14 days. This is to check for fever. Keep a record of the readings. Keep watch for symptoms of the virus. Tell your provider right away if you have symptoms. If you were in an area with COVID-19 and have a fever or other symptoms: Dont panic. Keep in mind that other illnesses can cause similar symptoms. Stay away from work, school, and public places. Limit physical contact with family members. Don't kiss anyone or share eating or drinking utensils. Clean surfaces you touch with disinfectant. This is to help prevent the virus from spreading. Call your healthcare provider. Explain that you have been exposed to COVID-19 and have symptoms. Do this before going to any hospital. Wait for instructions. Keep in mind that healthcare staff may wear protective equipment such as masks, gowns, gloves, and eye protection. You may be put in a separate room. This is to prevent the possible virus from spreading. Tell the healthcare staff about recent travel. This includes local travel on public transport. Staff may need to find other people you have been in contact with. Follow all instructions the healthcare staff give you. If you have been diagnosed with COVID-19 Follow all instructions from your healthcare provider. Dont leave your home, except to get medical care. Call your healthcare providers office before going. They can prepare and give you instructions. This will help prevent the virus from spreading. Dont go to work, school, or public areas. Dont use public transport or taxis. Stay away from other people in your home. Have them wear face masks around you. Dont share household items or food. Wear a face mask if you can. This includes at home or in a medical facility. Cover your face with a tissue when you cough or sneeze. Throw the tissue away. Wash your hands. Wash your hands often. Caregivers should: Follow all instructions from healthcare staff. Wear a face mask and protective clothing as advised. Wash hands often. Keep track of the sick persons symptoms. Clean surfaces, fabrics, and laundry thoroughly. Keep other people away from the sick person. When to call your healthcare provider Call your healthcare provider: If youve recently traveled and have symptoms If you have been diagnosed with COVID-19 and your symptoms are worse To learn more To find out more about COVID-19, visit the CDC website at www.cdc.gov/coronavirus/2019-ncov/index.html. [employer]. [address] [place] [address]. All rights reserved. This information is not intended as a substitute for professional medical care. Always follow your healthcare professional's instructions. This information has been adapted from [employer] Pending Studies at Discharge: No Stand-Alone Forms: My [facility] [employer], Smoking Cessation Medications and DC Order Prescriptions: New oxycodone 5 mg Tablet 5 mg PO Q8H PRN (Reason: pain) Qty: 10 0RF Xarelto DVT-PE Treat 30d Start 15 mg (42)- 20 mg (9) tablets,dose pack 1 ea PO UD Qty: 51 2RF Rx Instructions: take one-15 mg tablet twice daily for 21 days, then one-20 mg tablet once daily; must take with meal/food orally use as directed; Continued doxepin 100 mg capsule 100 mg PO HS Qty: 90 levothyroxine 100 mcg tablet 100 mcg PO QAM aspirin 81 mg Tablet,Delayed Release (Dr/Ec) 81 mg PO HS omeprazole magnesium [Prilosec OTC] 20 mg Tablet,Delayed Release (Dr/Ec) 20 mg PO DAILY PRN (Reason: HEARTBURN/INDIGESTION) Repatha SureClick 140 mg/mL pen injector 140 mg SUBCUT .Q2WK Biktarvy 50-200-25 mg tablet 1 tab PO DAILY Discharge Orders: Discharge Order (Routine); Ordered 10/16/22 Ordered By: Kunal Macdonald Admission Data Admit Date/Time: 10/15/22 04:09 Attending Provider: Kunal Macdonald Admit Provider: Darrell Barillas Primary Care Provider: Cory Candelaria Other Providers: Darrell Barillas
== END 2022-10-16 16:02 | disposition home or self-care (01) ==
LOC: EDINP 16:41 → ED 16:41 → 3E 10-15 05:13

== ENCOUNTER 2022-10-29 10:36 | Observation (INO) ==
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
[2022-10-29] MEDS ORDERED: PANTOprazole 80 MG in DEXTROSE 5% 100 ML IV ONE (11:18)
[2022-10-29] MEDS ORDERED: PANTOPRAZOLE BOLUS/DRIP 1 EACH IV STA (11:18)
[2022-10-29] MEDS ORDERED: SODIUM CHLORIDE 0.9% 500 ML IV SCH (11:30)
[2022-10-29] MEDS: PANTOprazole 40 MG in DEXTROSE 5% 100 ML IV SCH ×3 (11:55→20:53)
[2022-10-29 12:06] LABS: Basophils # (auto) 0.05 K/uL (0-0.2); Basophils % (auto) 0.6 %; Eosinophils # (auto) 0.34 K/uL (0-0.50); Eosinophils % (auto) 4.4 %; Hematocrit (blood only) 29.1 % (40.1-51.0); Hemoglobin 8.9 g/dl (14.0-18.0); Immature Granulocytes # (auto) 0.04 K/uL (0.00-0.02); Immature Granulocytes % (auto) 0.5 %; Lymphocytes # (auto) 2.09 K/uL (1.2-3.4); Lymphocytes % (auto) 26.9 %; Mean Corpuscular Hemoglobin 30.4 pg (25.0-34.0); Mean Corpuscular Hgb Conc 30.6 g/dL (32.0-36.0); Mean Corpuscular Volume 99.3 fL (80.0-100.0); Mean Platelet Volume 9.7 fL (9.4-12.4); Monocytes # (auto) 0.58 K/uL (0.24-0.82); Monocytes % (auto) 7.5 %; Neutrophils # (auto) 4.68 K/uL (1.4-6.5); Neutrophils % (auto) 60.1 %; Platelet Count 326 K/uL (130-400); RDW Coefficient of Variation 14.9 % (11.5-14.5); RDW Standard Deviation 53.9 fL (36.4-46.3); Red Blood Count 2.93 M/uL (4.63-6.08); White Blood Count 7.78 K/ul (4.8-10.8)
[2022-10-29 12:24] LABS: INR 1.4 (0.9-1.1); Partial Thromboplastin Ratio 1.4; Partial Thromboplastin Time 38.3 Seconds (21.0-31.0); Prothrombin Time 14.7 Seconds (9.0-12.0)
[2022-10-29 12:38] LABS: Albumin Level 3.6 gm/dl (3.4-5.0); BUN Creatinine Ratio 14.5 (10-20); Bilirubin,Total 0.3 mg/dl (0.2-1.0); Calcium 9.2 mg/dl (8.5-10.1); Creatinine Clr Calc Pharmacy 46.5 ml/min; Est GFR (African American) 48.2 ml/min; Est GFR (Non-African American) 41.6 ml/min; Globulin 3.7 gm/dl (2.5-4.0); Potassium 4.2 mmol/L (3.5-5.1); Total Protein 7.3 gm/dl (6.0-8.3)
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
[2022-10-29] MEDS ORDERED: SODIUM CHLORIDE 0.9% 250 ML IV PRN (14:32)
[2022-10-29] MEDS ORDERED: ACETAMINOPHEN 325 MG TAB PO PRN (15:18)
[2022-10-29] MEDS ORDERED: ONDANSETRON INJ 2 MG/ML 2 ML VIAL IV PRN (15:18)
[2022-10-29] MEDS ORDERED: VANCOMYCIN CONSULT ACTIVE PRN (15:33)
[2022-10-29] MEDS ORDERED: VANCOMYCIN HCL 2,250 MG in SODIUM CHLORIDE 0.9% 500 ML IV ONE (15:33)
--- NOTE | 2022-10-29 15:40 | Electrocardiogram Report ---
Test Reason : Blood Pressure : / mmHG Vent. Rate : 094 BPM Atrial Rate : 094 BPM P-R Int : 150 ms QRS Dur : 078 ms QT Int : 362 ms P-R-T Axes : 058 060 040 degrees QTc Int : 452 ms Normal sinus rhythm Normal ECG When compared with ECG of 14-OCT-2022 20:32, Premature ventricular complexes are no longer Present Confirmed by Preet Headley ([id number]) on 10/29/2022 3:40:44 PM Referred By: Confirmed By:Preet Headley
[2022-10-29] MEDS ORDERED: CEFEPIME 1,000 MG in SYRINGE 0 ML IV SCH (15:45)
[2022-10-29] MEDS ORDERED: VANCOMYCIN HCL 2,000 MG in SODIUM CHLORIDE 0.9% 500 ML IV ONE (16:00)
[2022-10-29 16:54] LABS: Hematocrit (blood only) 28.6 % (40.1-51.0); Hemoglobin 8.8 g/dl (14.0-18.0)
[2022-10-29] MEDS: CEFEPIME 2,000 MG in SYRINGE 0 ML IV SCH (16:56)
[2022-10-29] MEDS: oxyCODONE HCL IR 5 MG TAB (IMMEDIATE RELEASE) PO PRN (21:23)
[2022-10-29 23:39] LABS: Hematocrit (blood only) 28.3 % (40.1-51.0); Hemoglobin 8.7 g/dl (14.0-18.0)
[2022-10-30] MEDS: PANTOprazole 40 MG in DEXTROSE 5% 100 ML IV SCH ×3 (02:27→13:07)
[2022-10-30] MEDS: CEFEPIME 2,000 MG in SYRINGE 0 ML IV SCH ×2 (04:22→15:41)
[2022-10-30 06:16] LABS: Hematocrit (blood only) 25.7 % (40.1-51.0); Mean Corpuscular Hemoglobin 30.8 pg (25.0-34.0); Mean Corpuscular Hgb Conc 31.1 g/dL (32.0-36.0); Mean Corpuscular Volume 98.8 fL (80.0-100.0); Mean Platelet Volume 9.8 fL (9.4-12.4); Nucleated RBC # (auto) 0.02 K/uL (0-0); Nucleated RBC % (auto) 0.3 %; Platelet Count 276 K/uL (130-400); RDW Coefficient of Variation 15.3 % (11.5-14.5); RDW Standard Deviation 54.3 fL (36.4-46.3); White Blood Count 7.32 K/ul (4.8-10.8)
[2022-10-30 06:41] LABS: BUN Creatinine Ratio 13.8 (10-20); Calcium 8.4 mg/dl (8.5-10.1); Creatinine Clr Calc Pharmacy 50.8 ml/min; Est GFR (African American) 53.8 ml/min; Est GFR (Non-African American) 46.4 ml/min; Potassium 4.2 mmol/L (3.5-5.1)
[2022-10-30] MEDS: oxyCODONE HCL IR 5 MG TAB (IMMEDIATE RELEASE) PO PRN ×2 (08:00→20:06)
--- NOTE | 2022-10-30 10:24 | Pharmacy Report ---
Pharmacy Vanc AUC Short Note - Date of Service October 30, 2022 - Assessment & Plan Assessment 77 year old M receiving vancomycin and cefepime empirically. Presenting with shortness of breath/swelling of left lower leg. Recently placed on xarelto for DVT. Patient with hx of COVID 09/2022, hx of hepatitis C, dx with HIV in 1989 and follows with ID. Day # 2 of antimicrobial therapy Plan Vancomycin * AUC/NNEKA is the preferred PK/PD target for vancomycin * AUC guided dosing is effective and associated with decreased risk of nephrotoxicity compared to traditional trough targets * Patient received loading dose of vancomycin 2000 mg x 1 last evening and was started on vancomycin 1 gm iv q 12 hrs * This dosing is estimated to achieve a trough level of ~15 mcg/ml and target AUC/NNEKA of 400-600 mg/L.hr and may be associated with a 11 % risk of nephrotoxicity * Antibiotics ordered empirically - will consider ordering level if plan is to continue >48 hours Pharmacy will continue to follow and will adjust dose/frequency as necessary. Thank you.
[2022-10-30] MEDS ORDERED: oxyCODONE HCL IR 5 MG TAB (IMMEDIATE RELEASE) PO PRN (12:48)
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
[2022-10-30] MEDS: VANCOMYCIN HCL 1,250 MG in SODIUM CHLORIDE 0.9% 250 ML IV SCH (13:06)
[2022-10-30 14:56] LABS: Hematocrit (blood only) 26.4 % (40.1-51.0); Hemoglobin 8.1 g/dl (14.0-18.0)
[2022-10-30] MEDS: LEVOTHYROXINE SODIUM 100 MCG TABLET PO SCH (15:39)
[2022-10-30] MEDS: BIKTARVY PO SCH (15:39)
--- NOTE | 2022-10-30 16:12 | Hospitalist Progress Note ---
Date of Service October 30, 2022 Assessment & Plan (1) GI bleed: Plan: Symptomatic anemia Melena ? Multifactorial-NSAIDs, Xarelto, esophagitis In setting of anticoagulation with Xarelto Reports constipation,+ NSAIDs use in addition to Xarelto Last EGD was performed on 09/04/2021 which showed hiatal hernia, LA grade a esophagitis without bleeding Advised to avoid NSAIDs Plan for outpatient EGD as per GI Appreciate GI input Clear liquid diet for today Monitor H&H and transfuse PRBCs as needed If hemoglobin stable, will consider trial of heparin SQ before restarting Xarelto as patient had recurrent DVT Advance diet as tolerated (2) Left leg DVT: Plan: H/O IVC filter Age indeterminate, nonocclusive, extensive from last admission Xarelto currently held Plan to resume anticoagulation as able (3) Presence of IVC filter: (4) HIV antibody positive: Plan: - Follows with ID - Cont Biktarvy (5) Hepatitis C: Plan: - H/O liver cirrhosis s/p treatment in 2019 (6) Hypothyroidism: Plan: - Continue levothyroxine (7) History of COVID-19: Plan: - CT of the chest reviewed from outpatient epic from 10/27/2022: Shows e mphysematous changes, scattered area of patchy groundglass opacities with subpleural reticulation/scarring, most pronounced in the bilateral lower lobes there is no pneumothorax. -Incentive spirometry, flutter On empiric Antibiotics DVT Px: SCDs Re: Melena CODE STATUS: Full code Admission and Anticipated Discharge Date Admission Date: October 29, 2022 Subjective Patient is seen and examined at bedside States having intermittent Reports non expectorant cough and dyspnea on exertion Also reports left leg pain Denies any chest pain, dizziness, nausea, abdominal pain No bleeding issues since hospitalization Discussed with GI today Review of Systems Review of Systems: All systems reviewed & are unremarkable except as noted in Subjective Physical Exam Physical Exam: Physical Exam: Vitals signs as noted above General Appearance:Moderately built and nourished, no apparent distress Head: normocephalic, Atraumatic Eyes: normal inspection, EOMI Neck: supple, Trachea midline Respiratory/Chest: Decreased breath sounds, CTA, No accessory muscle use Cardiovascular: S1, S2, No murmur Abdomen/GI:Soft, Non tender, Bowel sounds present Extremities/Musculoskeletal:normal inspection, Left LE edema Neurologic/Psych:AAOX3, grossly no focal neurological deficits Skin: normal color, warm Results & Data Results & Data ([facility]) Vital Signs (Past 12 Hours) Vital Signs Temp Pulse Resp BP Pulse Ox O2 Del Method 10/30/22 11:27 36.4 C L 63 18 149/75 H 95 Room Air 10/30/22 08:00 36.4 C L 85 18 144/78 H 93 Room Air Laboratory Results Short CBC 10/29/22 10/29/22 10/30/22 Range/Units 16:42 23:19 05:29 WBC 7.32 (4.8-10.8) K/ul Hgb 8.8 L 8.7 L 8.0 L (14.0-18.0) g/dl Hct 28.6 L 28.3 L 25.7 L (40.1-51.0) % Plt Count 276 (130-400) K/uL 10/30/22 Range/Units 14:36 WBC (4.8-10.8) K/ul Hgb 8.1 L (14.0-18.0) g/dl Hct 26.4 L (40.1-51.0) % Plt Count (130-400) K/uL BMP 10/30/22 05:29 Sodium 140 Potassium 4.2 Chloride 111 H Carbon Dioxide 24 BUN 20 Creatinine 1.45 H Glucose 123 H Calcium 8.4 L (1) GI bleed GI bleed type/associated pathology: unspecified gastrointestinal hemorrhage t ype Qualified Code(s): K92.2 - Gastrointestinal hemorrhage, unspecified (2) Left leg DVT Affected thrombotic vein of extremity: femoral Chronicity: unspecified Qualified Code(s): I82.412 - Acute embolism and thrombosis of left femoral vein
[2022-10-30] MEDS: DOXEPIN HCL 50 MG CAPSULE PO SCH (21:12)
[2022-10-30] MEDS: PANTOprazole 40 MG TAB PO SCH (21:12)
[2022-10-31] MEDS: CEFEPIME 2,000 MG in SYRINGE 0 ML IV SCH (04:12)
[2022-10-31] MEDS: LEVOTHYROXINE SODIUM 100 MCG TABLET PO SCH (06:47)
[2022-10-31 08:15] LABS: Hematocrit (blood only) 25.7 % (40.1-51.0); Hemoglobin 7.8 g/dl (14.0-18.0)
[2022-10-31] MEDS: PANTOprazole 40 MG TAB PO SCH ×2 (08:28→20:43)
[2022-10-31] MEDS: DOCUSATE SODIUM 100 MG CAP PO SCH ×2 (08:28→20:42)
[2022-10-31] MEDS: BIKTARVY PO SCH (08:28)
[2022-10-31 08:34] LABS: BUN Creatinine Ratio 10.6 (10-20); Calcium 8.3 mg/dl (8.5-10.1); Creatinine Clr Calc Pharmacy 51.1 ml/min; Est GFR (African American) 55.2 ml/min; Est GFR (Non-African American) 47.6 ml/min; Potassium 3.9 mmol/L (3.5-5.1)
[2022-10-31] MEDS ORDERED: SODIUM CHLORIDE 0.9% 250 ML IV PRN (09:39)
[2022-10-31] MEDS: VANCOMYCIN HCL 1,250 MG in SODIUM CHLORIDE 0.9% 250 ML IV SCH (10:07)
[2022-10-31] MEDS: ADVANCED PROBIOTIC 1250 MG CAPSULE PO SCH (15:50)
--- NOTE | 2022-10-31 18:20 | Hospitalist Progress Note ---
Date of Service October 31, 2022 Assessment & Plan (1) GI bleed: Plan: Symptomatic anemia Melena ? Multifactorial-NSAIDs, Xarelto, esophagitis In setting of anticoagulation with Xarelto Reports constipation,+ NSAIDs use in addition to Xarelto Last EGD was performed on 09/04/2021 which showed hiatal hernia, LA grade a esophagitis without bleeding Advised to avoid NSAIDs Plan for outpatient EGD as per GI Appreciate GI input Monitor H&H and transfuse PRBCs as needed If hemoglobin stable, will consider trial of heparin SQ before restarting Xarelto as patient had recurrent DVT Hb 7.8 today Patient refuses blood transfusion currently Monitor CBC (2) Left leg DVT: Plan: H/O IVC filter Age indeterminate, nonocclusive, extensive from last admission Xarelto currently held Plan to resume anticoagulation as able (3) Presence of IVC filter: (4) HIV antibody positive: Plan: - Follows with ID - Cont Biktarvy (5) Hepatitis C: Plan: - H/O liver cirrhosis s/p treatment in 2019 (6) Hypothyroidism: Plan: - Continue levothyroxine (7) History of COVID-19: Plan: - CT of the chest reviewed from outpatient epic from 10/27/2022: Shows emphysematous changes, scattered area of patchy groundglass opacities with subpleural reticulation/scarring, most pronounced in the bilateral lower lobes there is no pneumothorax. -Incentive spirometry, flutter Clinically improving with antibiotics Continue p.o. antibiotics DVT Px: SCDs Re: Melena CODE STATUS: Full code Admission and Anticipated Discharge Date Admission Date: October 29, 2022 Subjective Patient is seen and examined at bedside States cough, dyspnea much improved Had 1 large brown bowel movement No bleeding issues Denies any chest pain, dizziness, nausea, abdominal pain Refuses blood transfusion Review of Systems Review of Systems: All systems reviewed & are unremarkable except as noted in Subjective Physical Exam Physical Exam: Physical Exam: Vitals signs as noted above General Appearance:Moderately built and nourished, no apparent distress Head: normocephalic, Atraumatic Eyes: normal inspection, EOMI Neck: supple, Trachea midline Respiratory/Chest: Decreased breath sounds, CTA, No accessory muscle use Cardiovascular: S1, S2, No murmur Abdomen/GI:Soft, Non tender, Bowel sounds present Extremities/Musculoskeletal:normal inspection, Left LE edema Neurologic/Psych:AAOX3, grossly no focal neurological deficits Skin: normal color, warm Results & Data Results & Data ([facility]) Vital Signs (Past 12 Hours) Vital Signs Temp Pulse Pulse Resp BP BP Pulse Ox 10/31/22 16:00 36.8 C 118 H 18 149/80 H 98 10/31/22 11:17 36.7 C 84 18 160/79 H 96 10/31/22 10:48 36.8 C 96 H 16 156/82 H 98 10/31/22 08:00 36.6 C 99 H 18 134/72 93 O2 Del Method 10/31/22 16:00 Room Air 10/31/22 11:17 Room Air 10/31/22 10:48 10/31/22 08:00 Room Air Laboratory Results Short CBC 10/31/22 Range/Units 07:41 Hgb 7.8 L (14.0-18.0) g/dl Hct 25.7 L (40.1-51.0) % BMP 10/31/22 07:41 Sodium 140 Potassium 3.9 Chloride 111 H Carbon Dioxide 23 BUN 15 Creatinine 1.42 H Glucose 121 H Calcium 8.3 L (1) GI bleed GI bleed type/associated pathology: unspecified gastrointestinal hemorrhage type Qualified Code(s): K92.2 - Gastrointestinal hemorrhage, unspecified (2) Left leg DVT Affected thrombotic vein of extremity: femoral Chronicity: unspecified Qualified Code(s): I82.412 - Acute embolism and thrombosis of left femoral vein
[2022-10-31] MEDS: DOXEPIN HCL 50 MG CAPSULE PO SCH (20:43)
[2022-10-31] MEDS: oxyCODONE HCL IR 5 MG TAB (IMMEDIATE RELEASE) PO PRN (22:04)
[2022-11-01] MEDS: LEVOTHYROXINE SODIUM 100 MCG TABLET PO SCH (06:16)
[2022-11-01 06:45] LABS: Hematocrit (blood only) 25.6 % (40.1-51.0)
[2022-11-01 07:10] LABS: BUN Creatinine Ratio 10.1 (10-20); Calcium 8.5 mg/dl (8.5-10.1); Creatinine Clr Calc Pharmacy 42.1 ml/min; Est GFR (African American) 48.2 ml/min; Est GFR (Non-African American) 41.6 ml/min; Potassium 3.9 mmol/L (3.5-5.1)
[2022-11-01] MEDS: ADVANCED PROBIOTIC 1250 MG CAPSULE PO SCH (08:19)
[2022-11-01] MEDS: DOXYCYCLINE HYCLATE 100 MG CAP PO SCH ×2 (08:19→20:30)
[2022-11-01] MEDS: BIKTARVY PO SCH (08:19)
[2022-11-01] MEDS: cefUROXime axetil 500 MG TAB PO SCH ×2 (08:19→20:31)
[2022-11-01] MEDS: PANTOprazole 40 MG TAB PO SCH ×2 (08:19→20:29)
[2022-11-01] MEDS: DOCUSATE SODIUM 100 MG CAP PO SCH ×2 (08:19→20:30)
--- NOTE | 2022-11-01 16:05 | Hospitalist Progress Note ---
Date of Service November 01, 2022 Assessment & Plan (1) GI bleed: Plan: Symptomatic anemia Melena ? Multifactorial-NSAIDs, Xarelto, esophagitis In setting of anticoagulation with Xarelto Reports constipation,+ NSAIDs use in addition to Xarelto Last EGD was performed on 09/04/2021 which showed hiatal hernia, LA grade a esophagitis without bleeding Advised to avoid NSAIDs Plan for outpatient EGD as per GI Appreciate GI input Monitor H&H and transfuse PRBCs as needed If hemoglobin stable, will consider trial of heparin SQ before restarting Xarelto as patient had recurrent DVT Hb 8.0 today Monitor CBC Needs follow-up with GI as outpatient (2) Left leg DVT: Plan: H/O IVC filter Age indeterminate, nonocclusive, extensive from last admission Xarelto currently held Plan to resume anticoagulation as able--likely transition from Xarelto to Eliquis Will consider heparin SQ trial tomorrow if hemoglobin stable and no recurrence of bleeding (3) Presence of IVC filter: (4) HIV antibody positive: Plan: - Follows with ID - Cont Biktarvy (5) Hepatitis C: Plan: - H/O liver cirrhosis s/p treatment in 2019 (6) Hypothyroidism: Plan: - Continue levothyroxine (7) History of COVID-19: Plan: - CT of the chest reviewed from outpatient epic from 10/27/2022: Shows emphysematous changes, scattered area of patchy groundglass opacities with subpleural reticulation/scarring, most pronounced in the bilateral lower lobes there is no pneumothorax. -Incentive spirometry, flutter Clinically improving with antibiotics Continue p.o. antibiotics DVT Px: SCDs Re: Melena CODE STATUS: Full code Admission and Anticipated Discharge Date Admission Date: October 29, 2022 Subjective Patient is seen and examined at bedside No recurrence of melena Less cough Denies any chest pain, dyspnea, dizziness, nausea, abdominal pain No new complaints Review of Systems Review of Systems: All systems reviewed & are unremarkable except as noted in Subjective Physical Exam Physical Exam: Physical Exam: Vitals signs as noted above General Appearance:Moderately built and nourished, no apparent distress Head: normocephalic, Atraumatic Eyes: normal inspection, EOMI Neck: supple, Trachea midline Respiratory/Chest: Decreased breath sounds, CTA, No accessory muscle use Cardiovascular: S1, S2, No murmur Abdomen/GI:Soft, Non tender, Bowel sounds present Extremities/Musculoskeletal:normal inspection, Left LE edema Neurologic/Psych:AAOX3, grossly no focal neurological deficits Skin: normal color, warm Results & Data Results & Data ([facility]) Vital Signs (Past 12 Hours) Vital Signs Temp Pulse Pulse Resp BP Pulse Ox O2 Del Method 11/01/22 15:39 36.3 C L 79 20 131/61 96 Room Air 11/01/22 12:08 92 H 11/01/22 12:08 Room Air 11/01/22 11:12 36.7 C 88 17 127/75 91 Room Air 11/01/22 11:06 36.8 C 93 H 17 122/65 96 Room Air 11/01/22 07:24 36.7 C 91 H 18 132/68 91 Room Air Laboratory Results Short CBC 11/01/22 Range/Units 05:50 Hgb 8.0 L (14.0-18.0) g/dl Hct 25.6 L (40.1-51.0) % BMP 11/01/22 05:50 Sodium 138 Potassium 3.9 Chloride 108 H Carbon Dioxide 22 BUN 16 Creatinine 1.59 H Glucose 121 H Calcium 8.5 (1) GI bleed GI bleed type/associated pathology: unspecified gastrointestinal hemorrhage type Qualified Code(s): K92.2 - Gastrointestinal hemorrhage, unspecified (2) Left leg DVT Affected thrombotic vein of extremity: femoral Chronicity: unspecified Qualified Code(s): I82.412 - Acute embolism and thrombosis of left femoral vein
[2022-11-01] MEDS: oxyCODONE HCL IR 5 MG TAB (IMMEDIATE RELEASE) PO PRN (18:28)
[2022-11-01] MEDS: DOXEPIN HCL 50 MG CAPSULE PO SCH (20:29)
[2022-11-02 06:09] LABS: Hematocrit (blood only) 25.4 % (40.1-51.0); Hemoglobin 7.9 g/dl (14.0-18.0)
[2022-11-02 06:36] LABS: Creatinine Clr Calc Pharmacy 48.7 ml/min; Est GFR (African American) 52.1 ml/min; Est GFR (Non-African American) 44.9 ml/min
[2022-11-02] MEDS: LEVOTHYROXINE SODIUM 100 MCG TABLET PO SCH (06:48)
[2022-11-02] MEDS: oxyCODONE HCL IR 5 MG TAB (IMMEDIATE RELEASE) PO PRN ×2 (09:17→21:16)
[2022-11-02] MEDS: BIKTARVY PO SCH (09:40)
[2022-11-02] MEDS: cefUROXime axetil 500 MG TAB PO SCH ×2 (09:41→20:47)
[2022-11-02] MEDS: PANTOprazole 40 MG TAB PO SCH ×2 (09:41→20:46)
[2022-11-02] MEDS: DOCUSATE SODIUM 100 MG CAP PO SCH ×2 (09:41→20:47)
[2022-11-02] MEDS: DOXYCYCLINE HYCLATE 100 MG CAP PO SCH ×2 (09:41→20:47)
[2022-11-02] MEDS: ADVANCED PROBIOTIC 1250 MG CAPSULE PO SCH (09:41)
[2022-11-02] MEDS: HEPARIN SOD 5,000 UNIT/0.5 ML VIAL SQ SCH ×3 (13:36→22:04)
--- NOTE | 2022-11-02 16:07 | Hospitalist Progress Note ---
Date of Service November 02, 2022 Assessment & Plan (1) GI bleed: Plan: Symptomatic anemia Melena ? Multifactorial-NSAIDs, Xarelto, esophagitis In setting of anticoagulation with Xarelto Reports constipation,+ NSAIDs use in addition to Xarelto Last EGD was performed on 09/04/2021 which showed hiatal hernia, LA grade a esophagitis without bleeding Advised to avoid NSAIDs Plan for outpatient EGD as per GI Appreciate GI input Monitor H&H and transfuse PRBCs as needed Hb 7.9 today Monitor CBC Needs follow-up with GI as outpatient Patient agrees to trial of heparin SQ as patient had recurrent DVT, needs chronic anticoagulation (2) Left leg DVT: Plan: H/O IVC filter Age indeterminate, nonocclusive, extensive from last admission Xarelto currently held Plan to resume anticoagulation as able--likely transition from Xarelto to Eliquis on heparin SQ trial Monitor H&H (3) Presence of IVC filter: (4) HIV antibody positive: Plan: - Follows with ID - Continue Biktarvy (5) Hepatitis C: Plan: - H/O liver cirrhosis s/p treatment in 2019 (6) Hypothyroidism: Plan: - Continue levothyroxine (7) History of COVID-19: Plan: - CT of the chest reviewed from outpatient epic from 10/27/2022: Shows emphysematous changes, scattered area of patchy groundglass opacities with subpleural reticulation/scarring, most pronounced in the bilateral lower lobes there is no pneumothorax. -Incentive spirometry, flutter Clinically improving with antibiotics Continue p.o. antibiotics DVT Px: SCDs SQ Heparin CODE STATUS: Full code Admission and Anticipated Discharge Date Admission Date: October 29, 2022 Subjective Patient is seen and examined at bedside Reports mild left leg pain and chronic swelling Denies any blood in stools Denies any chest pain, dyspnea, dizziness, nausea, abdominal pain Review of Systems Review of Systems: All systems reviewed & are unremarkable except as noted in Subjective Physical Exam Physical Exam: Physical Exam: Vitals signs as noted above General Appearance:Moderately built and nourished, no apparent distress Head: normocephalic, Atraumatic Eyes: normal inspection, EOMI Neck: supple, Trachea midline Respiratory/Chest: Decreased breath sounds, CTA, No accessory muscle use Cardiovascular: S1, S2, No murmur Abdomen/GI:Soft, Non tender, Bowel sounds present Extremities/Musculoskeletal:normal inspection, Left LE edema Neurologic/Psych:AAOX3, grossly no focal neurological deficits Skin: normal color, warm Results & Data Results & Data ([facility]) Vital Signs (Past 12 Hours) Vital Signs Temp Pulse Pulse Resp BP Pulse Ox O2 Del Method 11/02/22 15:41 36.4 C L 82 16 133/84 93 Room Air 11/02/22 11:16 89 11/02/22 11:14 36.4 C L 82 17 133/84 93 Room Air 11/02/22 07:16 36.8 C 86 17 125/63 94 Room Air Laboratory Results Short CBC 11/02/22 Range/Units 05:32 Hgb 7.9 L (14.0-18.0) g/dl Hct 25.4 L (40.1-51.0) % BMP 11/02/22 05:32 Creatinine 1.49 H (1) GI bleed GI bleed type/associated pathology: unspecified gastrointestinal hemorrhage type Qualified Code(s): K92.2 - Gastrointestinal hemorrhage, unspecified (2) Left leg DVT Affected thrombotic vein of extremity: femoral Chronicity: unspecified Qualified Code(s): I82.412 - Acute embolism and thrombosis of left femoral vein
[2022-11-02 20:10] LABS: Hematocrit (blood only) 26.7 % (40.1-51.0); Hemoglobin 8.3 g/dl (14.0-18.0)
[2022-11-02] MEDS: DOXEPIN HCL 50 MG CAPSULE PO SCH (20:46)
[2022-11-03] MEDS: HEPARIN SOD 5,000 UNIT/0.5 ML VIAL SQ SCH (05:46)
[2022-11-03] MEDS: LEVOTHYROXINE SODIUM 100 MCG TABLET PO SCH (05:46)
[2022-11-03 06:18] LABS: Hematocrit (blood only) 25.2 % (40.1-51.0); Hemoglobin 7.9 g/dl (14.0-18.0)
[2022-11-03] MEDS: BIKTARVY PO SCH (08:34)
[2022-11-03] MEDS: DOXYCYCLINE HYCLATE 100 MG CAP PO SCH (08:43)
[2022-11-03] MEDS: ADVANCED PROBIOTIC 1250 MG CAPSULE PO SCH (08:43)
[2022-11-03] MEDS: cefUROXime axetil 500 MG TAB PO SCH (08:43)
[2022-11-03] MEDS: PANTOprazole 40 MG TAB PO SCH (08:44)
[2022-11-03] MEDS: DOCUSATE SODIUM 100 MG CAP PO SCH (08:44)
[2022-11-03] MEDS: oxyCODONE HCL IR 5 MG TAB (IMMEDIATE RELEASE) PO PRN (08:47)
--- NOTE | 2022-11-03 12:08 | Hospitalist Progress Note ---
Date of Service November 03, 2022 Assessment & Plan (1) GI bleed: Plan: Symptomatic anemia Melena ? Multifactorial-NSAIDs, Xarelto, esophagitis In setting of anticoagulation with Xarelto Reports constipation,+ NSAIDs use in addition to Xarelto Last EGD was performed on 09/04/2021 which showed hiatal hernia, LA grade a esophagitis without bleeding Advised to avoid NSAIDs Plan for outpatient EGD as per GI Appreciate GI input Monitor H&H and transfuse PRBCs as needed Hb 7.9 today Monitor CBC Needs follow-up with GI as outpatient Plan for endoscopy on 11/07/22 No bleeding issues while on heparin SQ Advised to start taking Eliquis after Endoscopy and discuss with GI/Hematology for further instructions (2) Left leg DVT: Plan: H/O IVC filter Age indeterminate, nonocclusive, extensive from last admission Xarelto discontinued Plan to resume anticoagulation after Endoscopy Xarelto changed to Eliquis Advised to follow-up with hematology upon discharge (3) Presence of IVC filter: (4) HIV antibody positive: Plan: - Follows with ID - Continue Biktarvy (5) Hepatitis C: Plan: - H/O liver cirrhosis s/p treatment in 2019 (6) Hypothyroidism: Plan: - Continue levothyroxine (7) History of COVID-19: Plan: - CT of the chest reviewed from outpatient epic from 10/27/2022: Shows emphysematous changes, scattered area of patchy groundglass opacities with subpleural reticulation/scarring, most pronounced in the bilateral lower lobes there is no pneumothorax. -Incentive spirometry, flutter -Likely Bronchitis-POA Clinically improving with antibiotics Continue p.o. antibiotics DVT Px: SCDs SQ Heparin CODE STATUS: Full code Admission and Anticipated Discharge Date Admission Date: October 29, 2022 Subjective Patient is seen and examined at bedside No new complaints Recurrence of bleeding issues Hemoglobin stable Still has mild left leg pain and chronic swelling Denies any chest pain, dyspnea, dizziness, nausea, abdominal pain Review of Systems Review of Systems: All systems reviewed & are unremarkable except as noted in Subjective Physical Exam Physical Exam: Physical Exam: Vitals signs as noted above General Appearance:Moderately built and nourished, no apparent distress Head: normocephalic, Atraumatic Eyes: normal inspection, EOMI Neck: supple, Trachea midline Respiratory/Chest: Decreased breath sounds, CTA, No accessory muscle use Cardiovascular: S1, S2, No murmur Abdomen/GI:Soft, Non tender, Bowel sounds present Extremities/Musculoskeletal:normal inspection, Left LE edema Neurologic/Psych:AAOX3, grossly no focal neurological deficits Skin: normal color, warm Results & Data Results & Data ([facility]) Vital Signs (Past 12 Hours) Vital Signs Temp Pulse Resp BP Pulse Ox O2 Del Method 11/03/22 11:14 36.5 C 86 18 170/81 H 93 Room Air 11/03/22 07:45 36.6 C 81 20 146/81 H 93 Room Air 11/03/22 03:36 36.7 C 88 18 128/72 94 Room Air Laboratory Results Short CBC 11/02/22 11/03/22 Range/Units 19:46 05:33 Hgb 8.3 L 7.9 L (14.0-18.0) g/dl Hct 26.7 L 25.2 L (40.1-51.0) % (1) GI bleed GI bleed type/associated pathology: unspecified gastrointestinal hemorrhage type Qualified Code(s): K92.2 - Gastrointestinal hemorrhage, unspecified (2) Left leg DVT Affected thrombotic vein of extremity: femoral Chronicity: unspecified Qualified Code(s): I82.412 - Acute embolism and thrombosis of left femoral vein
--- NOTE | 2022-11-03 12:36 | Discharge Summary ---
Date of Service November 03, 2022 Admission HPI Per Admitting Provider This is a 77-year-old male with past medical history significant for hypothyroidism, hyperlipidemia, COPD, and history of blood clots, he says his first blood clot was in 2002 and last blood clot was about 1 year ago, and for his last blood clot, he was on Xarelto for 6 months. As per EPIC review, he also has history of left lower extremity DVT( seems in 2019), status post IVC filter; bilateral carotid artery stenosis, hypertension, history of CVA, history of PVCs, reflux esophagitis, chronic kidney disease, stage III; HIV positive, history of right common carotid artery stent placement, and chronic hepatitis C with cirrhosis, treated in 2019 as per ID notes, diagnosed with HIV in 1989, follows with ID. Pt also had COVID last month and had some residual coughing which has now improved. Patient was recently hospitalized here from 10/15-10/16 for left lower extremity extensive nonocclusive DVT which was age-indeterminate at that time. He was placed on Xarelto: 15 mg twice daily with food for 21 days followed by 20 mg once daily. This was discussed with heme/oncology prior to discharge. He went to see his PCP, Dr. Mckeon yesterday due to the shortness of breath and continuation of swelling in his left lower leg. He was told to go to the ER if swelling did not improve soon. A CT scanning of the lungs was obtained on 10/27 with results concerning for infection which was thought to be due to prior history of COVID. Repeat imaging was recommended within 2 weeks. It was noticed that his hemoglobin had dropped from 14 to 9 since his last admission. Today the patient presents to the ER with complaint of shortness of breath with minimal walking. Denies lightheadedness, dizziness, fatigue. He admits to noticing dark black stools which started a few days after starting xarelto from last admissionfor LLE DVT.. He is only having 1 BM per day, and denies any abdominal complaints including pain, nausea and is eating and drinking well. Denies alcohol intake. Patient notes being constipated 2 days ago, then took a stool softener and had 1 large bowel movement yesterday. Pt has not had BM yet today. He denies any BRBPR and has never had a GI bleed before. Pt has never had a blood transfusion before. He lives at home by himself. Admission Exam Per Admitting Provider Physical Exam Physical Exam: General: male, awake, alert, no apparent distress Head: Normocephalic, atraumatic ENT: PERRL, EOMI, no pharyngeal exudate, mucous membranes moist Chest: Diminished breath sounds at bases bilaterally, no wheeze or rales, on RA with O2 sats at 98%. Cardiac: Regular rate and rhythm, no murmur, no JVD, normal peripheral pulses, good capillary refill Abdominal: NABS x 4 quadrants, soft, nondistended, nontender to palpation, no rebound or guarding Extremities: LLE with pitting edema up to thigh, RLE normal inspection, no peripheral edema or erythema, calfs nontender to palpation Psych: Normal mood and affect Neuro: AAO x 3, strength intact bilaterally and rated 5/5, no motor deficits, speech is clear, no peripheral sensory deficits Principal Diagnosis Symptomatic anemia Bronchitis Melena Left legdeep vein thrombosis Discharge Data Allergies Allergy/AdvReac Type Severity Reaction Status Date / Time amoxicillin AdvReac Severe severe Verified 10/15/22 00:14 diarrhea penicillin G AdvReac Severe severe Verified 10/15/22 00:14 diarrhea Consultations 10/29/22 13:00 ED Decision to Admit Stat 10/29/22 18:01 Consult Gastroenterology Routine Procedures Performed Laboratory Results WBC 7.32 K/ul (4.8-10.8) 10/30/22 05:29 RBC 2.60 M/uL (4.63-6.08) L 10/30/22 05:29 Hgb 7.9 g/dl (14.0-18.0) L 11/03/22 05:33 Hct 25.2 % (40.1-51.0) L 11/03/22 05:33 MCV 98.8 fL (80.0-100.0) 10/30/22 05:29 MCH 30.8 pg (25.0-34.0) 10/30/22 05:29 MCHC 31.1 g/dL (32.0-36.0) L 10/30/22 05:29 RDW Std Deviation 54.3 fL (36.4-46.3) H 10/30/22 05:29 RDW Coeff of Ghazala 15.3 % (11.5-14.5) H 10/30/22 05:29 Plt Count 276 K/uL (130-400) 10/30/22 05:29 MPV 9.8 fL (9.4-12.4) 10/30/22 05:29 Immature Gran % (Auto) 0.5 % 10/29/22 11:40 Neut % (Auto) 60.1 % 10/29/22 11:40 Lymph % (Auto) 26.9 % 10/29/22 11:40 Troup % (Auto) 7.5 % 10/29/22 11:40 Eos % (Auto) 4.4 % 10/29/22 11:40 Baso % (Auto) 0.6 % 10/29/22 11:40 Neut # (Auto) 4.68 K/uL (1.4-6.5) 10/29/22 11:40 Lymph # (Auto) 2.09 K/uL (1.2-3.4) 10/29/22 11:40 Troup # (Auto) 0.58 K/uL (0.24-0.82) 10/29/22 11:40 Eos # (Auto) 0.34 K/uL (0-0.50) 10/29/22 11:40 Baso # (Auto) 0.05 K/uL (0-0.2) 10/29/22 11:40 Immature Gran # (Auto) 0.04 K/uL (0.00-0.02) H 10/29/22 11:40 Absolute Nucleated RBC 0.02 K/uL (0-0) H 10/30/22 05:29 Nucleated RBC % (auto) 0.3 % 10/30/22 05:29 PT 14.7 Seconds (9.0-12.0) H 10/29/22 11:40 INR 1.4 (0.9-1.1) H 10/29/22 11:40 APTT 38.3 Seconds (21.0-31.0) H 10/29/22 11:40 PTT Ratio 1.4 10/29/22 11:40 Sodium 138 mmol/L (136-145) 11/01/22 05:50 Potassium 3.9 mmol/L (3.5-5.1) 11/01/22 05:50 Chloride 108 mmol/L (98-107) H 11/01/22 05:50 Carbon Dioxide 22 mmol/L (21-32) 11/01/22 05:50 Anion Gap 8 (3-11) 11/01/22 05:50 BUN 16 mg/dl (6-23) 11/01/22 05:50 Creatinine 1.49 mg/dl (0.6-1.4) H 11/02/22 05:32 Est Cr Clr Drug Dosing 48.7 ml/min 11/02/22 05:32 Est GFR ( Amer) 52.1 ml/min 11/02/22 05:32 Est GFR (Non-Af Amer) 44.9 ml/min 11/02/22 05:32 BUN/Creatinine Ratio 10.1 (10-20) 11/01/22 05:50 Glucose 121 mg/dl (70-99(Fasting)) H 11/01/22 05:50 Calcium 8.5 mg/dl (8.5-10.1) 11/01/22 05:50 Total Bilirubin 0.3 mg/dl (0.2-1.0) 10/29/22 11:40 AST 14 U/L (13-39) 10/29/22 11:40 ALT 9 U/L (7-52) 10/29/22 11:40 Alkaline Phosphatase 74 U/L (34-104) 10/29/22 11:40 Total Protein 7.3 gm/dl (6.0-8.3) 10/29/22 11:40 Albumin 3.6 gm/dl (3.4-5.0) 10/29/22 11:40 Globulin 3.7 gm/dl (2.5-4.0) 10/29/22 11:40 Albumin/Globulin Ratio 1.0 (0.9-2) 10/29/22 11:40 Procalcitonin < 0.05 ng/ml (0-0.5) 10/29/22 16:42 Stool Occult Bld Scrn Positive (Negative) A 10/30/22 18:30 POC Stool Occult Blood Cancelled 10/30/22 18:20 SARS-CoV-2, RNA, NAAT NEGATIVE (NEGATIVE) 10/29/22 12:00 Blood Type O Positive 10/29/22 11:57 Blood Type Recheck O Positive 10/29/22 14:51 Antibody Screen NEGATIVE 10/29/22 11:57 Crossmatch See Detail 10/29/22 11:57 Hospital Course (1) GI bleed: Symptomatic anemia Melena ? Multifactorial-NSAIDs, Xarelto, esophagitis In setting of anticoagulation with Xarelto Reports constipation,+ NSAIDs use in addition to Xarelto Last EGD was performed on 09/04/2021 which showed hiatal hernia, LA grade a esophagitis without bleeding Advised to avoid NSAIDs Plan for outpatient EGD as per GI Appreciate GI input Monitor H&H and transfuse PRBCs as needed Hb 7.9 today Monitor CBC Needs follow-up with GI as outpatient Plan for endoscopy on 11/07/22 No bleeding issues while on heparin SQ Advised to start taking Eliquis after Endoscopy and discuss with GI/Hematology for further instructions (2) Left leg DVT: H/O IVC filter Age indeterminate, nonocclusive, extensive from last admission Xarelto discontinued Plan to resume anticoagulation after Endoscopy Xarelto changed to Eliquis Advised to follow-up with hematology upon discharge (3) Presence of IVC filter: (4) HIV antibody positive: - Follows with ID - Continue Biktarvy (5) Hepatitis C: - H/O liver cirrhosis s/p treatment in 2019 (6) Hypothyroidism: - Continue levothyroxine (7) History of COVID-19: - CT of the chest reviewed from outpatient epic from 10/27/2022: Shows emphysematous changes, scattered area of patchy groundglass opacities with subpleural reticulation/scarring, most pronounced in the bilateral lower lobes there is no pneumothorax. -Incentive spirometry, flutter -Likely Bronchitis-POA Clinically improving with antibiotics Continue p.o. antibiotics DVT Px: SCDs SQ Heparin CODE STATUS: Full code Total Time Total Time Spent Total Time Spent (In Minutes): 45 minutes Discharge Plan Discharge Items Patient Disposition: Home - Self-Care Reason For Visit: GI BLEED Discharge Diagnosis: Symptomatic anemia Bronchitis Melena Left legdeep vein thrombosis Activity: Per Instructions section Exercise/Sports: Wait until after follow-up appointment Non-emergency contact: Primary Care Provider, Accounting Systems Analyst and Oncologist Call non-emergency contact if: you have any medication questions, your symptoms worsen, your pain is concerning for you and you have a fever Follow-up/Referrals: [facility] [Provider Group] - 11/07/22 ([facility] will call you with check in information for your test (EGD). ) Cory Candelaria DO [Primary Care Provider] - (Date & Time 11/10/2022 12:00 PM Provider Cory Candelaria DO Department [facility] ) Diet: Regular Addtl Attending Provider Instructions: Follow-up with your primary care physician Dr. Candelaria in 1 week as advised Follow-up with your product test engineer as scheduled for endoscopy and further recommendations on anticoagulation Consider following with your industrial electrician journeyman to discuss about managing your recurrent blood clots Medications: --- Complete antibiotic course (cefuroxime and doxycycline) for 2 more days as prescribed --- Start taking Protonix 40 mg twice a day --- Your Xarelto and omeprazole were discontinued --- Start taking Eliquis after endoscopy as advised. Take Eliquis(apixaban) 10 mg twice a day for 1 week and then transition to 5 mg twice a day Blood Work --Get Blood test (Complete blood count) in 1 week and follow up with your physician Do not take group of medications belonging to NSAIDs group -can increase your risk for bleeding and worsen your kidney function List Of these medications includes but not limited to: Diclofenac Ibuprofen, Motrin, Advil Toradol,ketorolac Naproxen, Aleve, Naprosyn You can take Tylenol as needed for pain or fever When buying [id number] pain medications please consult with pharmacy if you are not sure regarding ingredients, as a lot of the pain medications have combination of NSAIDs and Tylenol. Seek immediate medical attention if your symptoms reoccur or worsen Please take all medications as instructed on discharge list below. Please call if you have any questions or problems. You can reach a [facility] hospitalist on duty at [facility] 24 hours a day by calling [phone] Pending Studies at Discharge: No Stand-Alone Forms: My [facility] [employer], Smoking Cessation Medications and DC Order Prescriptions: New Eliquis 5 mg tablet 5 mg PO UD Qty: 74 1RF Rx Instructions: start taking 10mg twice a day for 1 week and then take 5mg twice a day doxycycline hyclate 100 mg Capsule 100 mg PO BID Qty: 4 0RF pantoprazole 40 mg Tablet,Delayed Release (Dr/Ec) 40 mg PO BID Qty: 60 1RF docusate sodium 100 mg Capsule 100 mg PO BID PRN (Reason: Constipation) Qty: 30 0RF cefuroxime axetil 500 mg Tablet 500 mg PO BID Qty: 4 0RF Continued doxepin 100 mg capsule 100 mg PO HS Qty: 90 levothyroxine 100 mcg tablet 100 mcg PO QAM aspirin 81 mg Tablet,Delayed Release (Dr/Ec) 81 mg PO HS Repatha SureClick 140 mg/mL pen injector 140 mg SUBCUT .Q2WK Biktarvy 50-200-25 mg tablet 1 tab PO DAILY oxycodone 5 mg Tablet 5 mg PO Q8H PRN (Reason: pain) Qty: 8 0RF Discontinued omeprazole magnesium [Prilosec OTC] 20 mg Tablet,Delayed Release (Dr/Ec) 20 mg PO DAILY PRN (Reason: HEARTBURN/INDIGESTION) Xarelto DVT-PE Treat 30d Start 15 mg (42)- 20 mg (9) tablets,dose pack 1 ea PO UD Qty: 51 2RF Rx Instructions: take one-15 mg tablet twice daily for 21 days, then one-20 mg tablet once daily; must take with meal/food orally use as directed; Discharge Orders: Discharge Order (Routine); Ordered 11/03/22 Ordered By: Kunal Macdonald Admission Data Admit Date/Time: 10/29/22 13:31 Attending Provider: Kunal Macdonald Admit Provider: Rose Dave Primary Care Provider: Cory Candelaria Other Providers: Rose Dave ; Jim Gross Jr
== END 2022-11-03 13:35 | disposition home or self-care (01) ==
LOC: ED 10:36 → INTOOBSV 13:31 → SUATTDRO 13:31 → 4W 13:31